=== PATIENT | female | born 1940 | race Caucasian/White ===

== ENCOUNTER 2017-01-01 13:30 | Emergency (ER) | payer OTHER ==
[2017-01-01] MEDS ORDERED: FENTANYL 250 MCG/5 ML VIAL ONE ×2 (13:51→15:02)
[2017-01-01] MEDS ORDERED: FENTANYL 100 MCG/2 ML VIAL ONE (14:07)
[2017-01-01] MEDS ORDERED: DIPH,PERTUSS(ACELL),TET VAC/PF 0.5 ML VIAL IM ONE (14:08)
[2017-01-01] MEDS ORDERED: MIDAZOLAM HCL 2 MG/2 ML VIAL ONE (15:02)
--- NOTE | 2017-01-01 16:59 | ER PHYSICIAN DOCUMENTATION ---
Physician Documentation [facility] Name:Drarell Conklin Age:76 yrs Sex:Female :1940 Arrival Date:01/01/2017 Time:13:28 Bed6 Private MD: Nikolay Milian Disposition: 01/01/17 14:53 Discharged to Home/Self Care. Impression: Dislocation of Elbow, Olecranon Process of Ulna Fracture. - Condition is Good. - Discharge Instructions: ELBOW DISLOCATION, ELBOW FRACTURE. - Prescriptions for Hydrocodone- Acetaminophen 5-325 mg Oral Tablet - take 1 tablet by ORAL route every 6 hours As needed; 20 tablet. - Medical Reconciliation form form. - Follow up: Camron Schaefer DO; When: 1 week; Reason: Recheck today's complaints, Continuance of care. - Problem is new. - Symptoms have improved. HPI: 01/01 14:45 This 76 yrs old Female presents to ER via EMS with complaints of Elbow Injury.sc 14:45 The patient or guardian complains of decreased range of motion, deformity, injury, sc pain. The complaints affect the right elbow. Context: The problem was sustained outdoors, resulted from a fall, while walking. Onset: The symptom(s)/episode began/occurred just prior to arrival. Treatment prior to arrival includes: no previous treatment. Associated signs and symptoms: The patient has no apparent associated signs or symptoms. Historical: - Allergies: No known drug Allergies; - Home Meds: 1. Lisinopril Oral - PMHx: HYPERTENSION; - PSHx: leg; - Tetanus: > 10 years. - Ebola Screening: : Patient negative for fever greater than or equal to 101.5 degrees Fahrenheit, and additional compatible Ebola Virus Disease symptoms. Patient denies exposure to infectious person. Patient denies travel to an Ebola-affected area in the 21 days before illness onset. No symptoms or risks identified at this time. . - Immunization history: Flu Vaccine < 1 year. - Social history: Smoking status: Patient states was never smoker of tobacco. ROS: 14:49 Constitutional: Negative for fever, chills, and weight loss. sc Eyes: Negative for injury, pain, redness, and discharge. ENT: Negative for injury, pain, and discharge. Neck: Negative for injury, pain, and swelling. Cardiovascular: Negative for chest pain, palpitations, and edema. Respiratory: Negative for shortness of breath, cough, wheezing, and pleuritic chest pain. Abdomen/GI: Negative for abdominal pain, nausea, vomiting, diarrhea, and constipation. Back: Negative for injury and pain. Skin: Negative for injury, rash, and discoloration. 14:49 Neuro: Negative for headache, weakness, numbness, tingling, and seizure. sc 14:49 MS/extremity: Positive for injury or acute deformity, decreased range of motion, pain. Exam: Constitutional: This is a well developed, well nourished patient who is awake, alert, and in no acute distress. Head/Face: Normocephalic, atraumatic. Eyes: Pupils equal round and reactive to light, extra-ocular motions intact. Lids and lashes normal. Conjunctiva and sclera are non-icteric and not injected. Cornea within normal limits. Periorbital areas with no swelling, redness, or edema. ENT: Nares patent. No nasal discharge, no septal abnormalities noted. Tympanic membranes are normal and external auditory canals are clear. Oropharynx with no redness, swelling, or masses, exudates, or evidence of obstruction, uvula midline. Mucous membranes moist. Neck: Trachea midline, no thyromegaly or masses palpated, and no cervical lymphadenopathy. Supple, full range of motion without nuchal rigidity, or vertebral point tenderness. No meningismus. Chest/axilla: Normal chest wall appearance and motion. Nontender with no deformity. No lesions are appreciated. Cardiovascular: Regular rate and rhythm with a normal S1 and S2. No gallops, murmurs, or rubs. Normal PMI, no JVD. No pulse deficits. Respiratory: Lungs have equal breath sounds bilaterally, clear to auscultation and percussion. No rales, rhonchi or wheezes noted. No increased work of breathing, no retractions or nasal flaring. Back: No spinal tenderness. No costovertebral tenderness. Full range of motion. 14:49 Skin: Warm, dry with normal turgor. Normal color with no rashes, no lesions, and no sc evidence of cellulitis. 14:49 Musculoskeletal/extremity: Extremities: grossly normal except: decreased ROM, deformity, ecchymosis, Circulation is intact in all extremities. Sensation intact. Vital Signs: 13:50 BP 121 / 62; Pulse 95; Resp 14; Temp 98.4; Pulse Ox 95% on R/A; Weight 78.02 kg (R); tg Height 5 ft. 3 in. (160.02 cm) (R); Pain 4/10; 14:41 BP 142 / 69 (auto/); tg 14:52 Pulse 100 MON; Resp 17; Pulse Ox 96% ; tg 14:57 Pulse 106 MON; Resp 14; Pulse Ox 97% ; tg 15:00 BP 145 / 72 (auto/); tg 15:02 Pulse 112 MON; Resp 23; Pulse Ox 96% ; tg 15:10 BP 113 / 49 (auto/); tg 15:12 Pulse 98 MON; Resp 24; Pulse Ox 100% ; tg 15:16 BP 146 / 64 (auto/); tg 15:17 Pulse 98 MON; Resp 15; Pulse Ox 100% ; tg 16:15 BP 137 / 59 (auto/); tg 16:27 Pulse 97 MON; Resp 11; Pulse Ox 95% ; tg 13:50 Body Mass Index 30.47 (78.02 kg, 160.02 cm) tg MDM: 13:45 Patient medically screened. sc 14:51 Differential diagnosis: dislocation, closed fracture, contusion. Data reviewed: vital sc signs, nurses notes, radiologic studies, and as a result, I will discharge patient, initiate a consult. Counseling: I had a detailed discussion with the patient and/or guardian regarding: the historical points, exam findings, and any diagnostic results supporting the discharge/admit diagnosis, radiology results, the need for outpatient follow up. Physician consultation: Camron Schaefer DO was called at 14:51, was contacted at 14:51, regarding patient's condition, need to come to ED to see patient. 14:53 ED course: Dr. Schaefer consulted and arrives promptly to ER to reduce, splint, and sc arrange follow up care.. 01/01 13:54 Order name: ELBOW;[place] [id number] EDMS 01/01 15:30 Order name: ELBOW; [address] [place] [id number] EDMS 01/01 17:10 Order name: ELBOW;[place] [id number] EDMS 01/01 13:34 Order name: Ice Packs; Complete Time: 13:34 tg 01/01 14:12 Order name: Wound Care; Complete Time: 14:12 tg 01/01 14:53 Order name: ORTHO: Sling; Complete Time: 15:50 tg Dispensed Medications: 14:07 Drug: Adacel 0.5 ml; {Adult Education Manager: [employer] ([employer]). Exp: 08/12/2018. Lot #: [id number] [id number] in sharps container.. } Route: IM; Site: left deltoid; 15:50 Follow up: Response: No adverse reaction tg 14:07 Drug: fentaNYL (PF) 50 mcg; Route: IVP; Site: left hand; tg 15:50 Follow up: Response: No adverse reaction; Pain is decreased tg 14:12 Drug: NS 0.9% 1000 ml; Route: IV; Rate: 30 ml/hr; Site: left hand; Delivery: [place] tg Tubing; 15:49 Follow up: IV Status: Completed infusion; Infusion discontinued; IV Intake: 60ml tg 15:00 Drug: fentaNYL (PF) 50 mcg; Route: IVP; Site: left hand; tg 15:49 Follow up: Response: No adverse reaction; Pain is decreased tg 15:02 Drug: Versed 3 mg; Route: IVP; Site: left hand; tg 15:49 Follow up: Response: Pain is decreased tg Signatures: Jamel Fernandez RN RN tg Nikolay Dejesus MD MD tx
--- NOTE | 2017-01-01 16:59 | ER NURSING DOCUMENTATION ---
Nurse's Notes [facility] Name:Darrell Conklin Age:76 yrs Sex:Female :1940 Arrival Date:01/01/2017 Time:13:28 Bed6 Private MD: Diagnosis:Dislocation of Elbow;Olecranon Process of Ulna Fracture Presentation: 01/01 13:33 Acuity: KIM 3 tg 13:49 Presenting complaint: Patient states: Pt had mechanical fall outside and landed on her tg knees and right elbow. No LOC, no neck, head, or back pain. CMS intact. Able to ambulate. Transition of care: patient was not received from another setting of care. Care prior to arrival: IV initiated. gauge and site 20g LHand Medication(s) given: Fentanyl 50mgIVP. Activity prior to arrival: Ambulatory @ scene. Mechanism of Injury: Fall. 13:49 Method Of Arrival: EMS: 420 tg 16:27 Acuity: KIM 2 tg Triage Assessment: 14:09 General: Appears in no apparent distress, Behavior is cooperative. Pain: Complains of tg pain in right elbow. Cardiovascular: Capillary refill < 3 seconds in right fingers. Respiratory: Respiratory effort is even, unlabored. Derm: Skin is pink, warm & dry. Musculoskeletal: Range of motion limited in right elbow. Historical: - Allergies: No known drug Allergies; - Home Meds: 1. Lisinopril Oral - PMHx: HYPERTENSION; - PSHx: leg; - Tetanus: > 10 years. - Ebola Screening: : Patient negative for fever greater than or equal to 101.5 degrees Fahrenheit, and additional compatible Ebola Virus Disease symptoms. Patient denies exposure to infectious person. Patient denies travel to an Ebola-affected area in the 21 days before illness onset. No symptoms or risks identified at this time. . - Immunization history: Flu Vaccine < 1 year. - Social history: Smoking status: Patient states was never smoker of tobacco. Screenin:11 Infectious Disease Risk Unable to Obtain. Abuse screen: Denies threats or abuse. Denies tg injuries from another. Nutritional screening: No deficits noted. Assessment: 14:12 Reassessment: Last meal this AM at 7, only sips of water since then. tg 14:[address] Dejesus and Dr. Schaefer, preference is to not request NIGHTCLUB MANAGER come in tg to perform sedation. . 16:27 Reassessment: Patient denies pain at this time. Patient states feeling better. Patient tg states symptoms have improved. Patient appears in no apparent distress at this time. Vital Signs: 13:50 BP 121 / 62; Pulse 95; Resp 14; Temp 98.4; Pulse Ox 95% on R/A; Weight 78.02 kg (R); tg Height 5 ft. 3 in. (160.02 cm) (R); Pain 4/10; 14:41 BP 142 / 69 (auto/); tg 14:52 Pulse 100 MON; Resp 17; Pulse Ox 96% ; tg 14:57 Pulse 106 MON; Resp 14; Pulse Ox 97% ; tg 15:00 BP 145 / 72 (auto/); tg 15:02 Pulse 112 MON; Resp 23; Pulse Ox 96% ; tg 15:10 BP 113 / 49 (auto/); tg 15:12 Pulse 98 MON; Resp 24; Pulse Ox 100% ; tg 15:16 BP 146 / 64 (auto/); tg 15:17 Pulse 98 MON; Resp 15; Pulse Ox 100% ; tg 16:15 BP 137 / 59 (auto/); tg 16:27 Pulse 97 MON; Resp 11; Pulse Ox 95% ; tg 13:50 Body Mass Index 30.47 (78.02 kg, 160.02 cm) ED Course: 13:28 Patient arrived in ED. em3 13:33 Triage completed. tg 13:37 Port Xray Completed. pm1 13:45 Nikolay Dejesus MD is Attending Physician. sc 13:54 ELBOW;[place] [id number] In Process Unspecified. EDMS 13:55 ELBOW;[place] [id number] Sent. pm1 14:08 Maintain field IV. Dressing intact. Site clean & dry. tg 14:08 Valuables Remains with patient. Pulse ox on. tg 14:08 Bed in low position Call Light in Reach Side rails up x1. Family accompanied patient. tg Affected limb iced. Affected limb elevated. 14:38 Jamel Fernandez, FELIPE is Primary Nurse. tg 14:41 virologist on. NIBP on. em3 14:52 Camron Schaefer DO is Referral Physician. sc 15:30 ELBOW; [address] [place] [id number] In Process Unspecified. EDMS 15:30 Wound care to abrasion, located on both knees was cleaned with soap and water, dressed tg with bacitracin band aid, Patient tolerated well. 15:37 Port Xray Completed. pm1 15:37 ELBOW; [address] [place] [id number] Sent. pm1 15:38 ELBOW; [address] [place] [id number] In Process Unspecified. EDMS 15:42 ELBOW;[place] [id number] In Process Unspecified. EDMS 15:48 Assist Provider Assist provider with reduction of right elbow using manipulation, Set tg up for procedure. Performed by Camron Schaefer DO Immobilized with OCL splint, andrew wrap, sling, Patient tolerated well. 15:50 Sling applied to right arm. tg M. Sedation: 15:02 Pre-procedure: Name of procedure: right elbow reduction The physician performing tg procedure is a different physician than the physician administering the sedation, Dr. Schaefer Sedation Score Active motion (2 points) Able to cough/deep breath (2 points) Fully awake (2 points) [place]/normal (2 points) Reviewed instructions and expectations with patient, Has had drug/anesthesia reactions to none Patient has been NPO for 8 hours. Reviewed patient's current meds list. virologist on. Cardiac rhythm sinus tachycardia Pulse ox on. Oxygen via nasal cannula @ 2L/min. 15:10 Intra-procedure: Sedation began at 15:00. Provider left patient's bedside at 15:18. tg Intra-procedure Time: 1-15 minutes Patient response: skin warm/dry, obeys commands, resps even/unlabored, IV patent. Post-procedure: Procedure ended at 15:15. Sedation Score Active motion (2 points) Able to cough/deep breath (2 points) Fully awake (2 points) [place]/normal (2 points) BP +/- 20% of pre sedation value (2 points). Administered Medications: 14:07 Drug: Adacel 0.5 ml; {Spear Fisher: [employer] ([employer]). Exp: 08/12/2018. Lot #: [id number] syrenge in sharps container.. } Route: IM; Site: left deltoid; 15:50 Follow up: Response: No adverse reaction tg 14:07 Drug: fentaNYL (PF) 50 mcg; Route: IVP; Site: left hand; tg 15:50 Follow up: Response: No adverse reaction; Pain is decreased tg 14:12 Drug: NS 0.9% 1000 ml; Route: IV; Rate: 30 ml/hr; Site: left hand; Delivery: [place] tg Tubing; 15:49 Follow up: IV Status: Completed infusion; Infusion discontinued; IV Intake: 60ml tg 15:00 Drug: fentaNYL (PF) 50 mcg; Route: IVP; Site: left hand; tg 15:49 Follow up: Response: No adverse reaction; Pain is decreased tg 15:02 Drug: Versed 3 mg; Route: IVP; Site: left hand; tg 15:49 Follow up: Response: Pain is decreased tg Intake: 15:49 IV: 60ml; Total: 60ml. tg Outcome: 14:53 Discharge ordered by . ga 16:30 Discharged to home ambulatory, with significant other. tg 16:30 Condition: stable 16:30 Discharge Assessment: Patient awake and alert. Pt able to ambulate with steady gait, CMS intact in right fingers. 16:30 Instructed on discharge instructions, follow up and referral plans. medication usage, [facility] wound care, Prescriptions given X 1. 16:30 IV D/Gerardo 16:58 Patient left the ED. 01/02 13:22 Discharge F/U Call: Unable to reach: no answer Signatures: Dispatcher [employer] Jamel Parada RN RN Mercedes Colvin RN RN Nikolay Read MD MD sc McBride, Philisha pm1 CharliejoMundo lee em3
--- NOTE | 2017-01-01 17:09 | RADIOLOGY REPORT ---
HISTORY: Fall, injury. Pain. COMPARISON: None. FINDINGS: 3 views of the elbow obtained. A comminuted fracture through the olecranon process results in proxima l retraction of the olecranon relative to the remainder of the ulna. The elbow joint is dislocated, w ith the ulna displaced proximally in the radial head displaced radially. There are multiple fracture fragments from the radial head. The coronoid process of the proximal fracture into several fragments. There are numerous calcifications that appear intra-articular. Evaluation of the distal humeral frac ture is difficult due to overlap with the ulnar and radial fragments. IMPRESSION: Right elbow dislocation, with comminuted fractures of the radial head, likely non-, and coronoid proc ess. Evaluation of distal humeral fracture is suboptimal, due to overlap with the ulnar and radial fr agments. Final Electronic Signature: This report was electronically signed by Quirino Teixeira MD on 01/01/2017 5:07 PM. samuel /
--- NOTE | 2017-01-01 17:10 | RADIOLOGY REPORT ---
HISTORY: Post reduction of elbow fracture dislocation COMPARISON: Earlier today FINDINGS: 2 views of the elbow obtained. Since earlier today, the elbow has been placed in a cast. The elbow d islocation has been reduced to anatomic alignment. Comminuted fracture of the olecranon process of th e proximal ulna results in residual anterior displacement of the distal fragment. Comminuted radial h ead fracture is again demonstrated. There is also a comminuted coronoid process fracture. The distal humerus appears grossly intact, although evaluation is limited. IMPRESSION: 1. Reduction of the elbow dislocation. 2. Unchanged comminuted fractures of the proximal ulna, including the coronoid process, and the radia l head. Noncontrast CT would be helpful for better assessing the extent of the fractures and location s of fragments. This would also be helpful in evaluating the distal humerus. Final Electronic Signature: This report was electronically signed by Quirino Teixeira MD on 01/01/2017 5:08 PM. samuel /
--- NOTE | 2017-01-02 07:59 | CONSULTATION ---
DATE OF CONSULTATION: 01/01/17 KETTLE SKIMMER: Camron Schaefer DO HISTORY OF PRESENT ILLNESS: Patient is a 76-year-old female who [place] where she tripped on a metal bench. ALLERGIES: None. MEDICATIONS Lisinopril. Aspirin. High-cholesterol medication. PAST MEDICAL HISTORY 1. Hypertension. 2. Cholesterol. PAST SURGICAL HISTORY 1. Femur open reduction, internal fixation 1993. 2. Ankle open reduction, internal fixation 2011. SOCIAL HISTORY: She does not drink alcohol. She does not smoke. She is to her who is here in the Emergency Room with her today. CHIEF COMPLAINT: Right elbow pain. PHYSICAL EXAMINATION RIGHT UPPER EXTREMITY: Positive swelling and tenderness to palpation over the right elbow and especially over the olecranon. The peripheral neurovascular status is intact with normal sensation and adequate perfusion with a radial pulse of 2/4. Motor is grossly intact as patient is able to move her fingers and wrist. Normal sensation. She has pain with any movement of the elbow. IMAGING: Plain film x-rays demonstrate a fracture dislocation of the elbow with comminution of the ulna. There is a possible nondisplaced fracture also of the radial neck; however, on orthogonal views of the right elbow it is not possible to know for sure about the radial neck or head. The distal humerus appears to be intact. The radial head is dislocated from the capitellum. The patient was given IV anesthesia with Versed and Fentanyl by the Emergency Room staff and a closed reduction was performed on the elbow with the elbow brought up into 90 degrees of flexion and supination. Postreduction x-rays demonstrated a good reduction with congruence of the radiocapitellar joint and good alignment of the ulna which is comminuted. ASSESSMENT: Right elbow fracture dislocation with comminuted fracture of the ulna and radiocapitellar dislocation. PLAN: Closed reduction. Patient was placed in a well padded fiberglass splint with 90 degrees of flexion and supination. She was also placed in a sling with ice in place. She is a [facility] patient and she is neurovascularly intact and her pain is controlled. She will follow up in [facility] with her primary care physician. She is being discharged home with oral analgesia. She is instructed to keep her elbow iced and elevated and to use a sling for elevation and comfort. [facility]
== END 2017-01-01 16:59 | disposition home or self-care (01) ==
LOC: ER 13:30
DX: S52.021A Displaced fracture of olecranon process without intraarticular extension of right ulna, initial encounter for closed fracture (principal); S53.004A Unspecified dislocation of right radial head, initial encounter; S80.211A Abrasion, right knee, initial encounter; S80.212A Abrasion, left knee, initial encounter; W01.0XXA Fall on same level from slipping, tripping and stumbling without subsequent striking against object, initial encounter; Y92.480 Sidewalk as the place of occurrence of the external cause; Y93.01 Activity, walking, marching and hiking; Z23 Encounter for immunization; I10 Essential (primary) hypertension; Z79.899 Other long term (current) drug therapy; Z74.3 Need for continuous supervision
CPT/HCPCS: 90471; 96361; 96374; 96375; 96376; 99285; J2250